=== PATIENT | male | born 2000 | race Caucasian/White ===

== ENCOUNTER 2019-09-21 20:10 | Emergency (ER) | payer MEDICAID ==
[2019-09-21] MEDS ORDERED: DIPH/PERTUSS(ACELL)/TETANUS VAC/PF 0.5 ML SYR (>=10YO) IM ONE (20:20)
--- NOTE | 2019-09-21 20:23 | ER Document Report ---
ED Medical Screen (RME) - General Chief Complaint: Laceration Stated Complaint: LEFT HAND LACERATION Time Seen by Provider: 09/21/19 20:20 Primary Care Provider: DEB CEPSEDES MD [Primary Care Provider] - Follow up as needed TRAVEL OUTSIDE OF THE [place] IN LAST 30 DAYS: No - HPI Notes: 09/21/19 20:21 Patient is a 18-year-old male with unknown last tetanus who presents complain ing of laceration to his left proximal anterior index finger by a clean knife when he was trying to open up a toy for his nephew prior to arrival. Patient states that he cannot flex his finger. I have treated and performed a rapid initial assessment of this patient. A comprehensive ED assessment and evaluation of the patient, analysis of test results and completion of medical decision making process will be conducted by additional ED providers. PHYSICAL EXAMINATION: GENERAL: Well-appearing, well-nourished and in no acute distress. A&Ox4. Answers questions appropriately. Left index finger: there is a somewhat deep, approx 2cm, laceration anterior prox finger. Pt cannot flex at the PIP/DIP joint suspect tendon laceration. - Related Data Allergies/Adverse Reactions: No Known Allergies Allergy (Verified 09/21/19 20:18) Past Medical History Pulmonary Medical History: Reports: Hx Asthma Psychiatric Medical History: Reports: Hx Attention Deficit Hyperactivity Disorder - Immunizations Immunizations up to date: Yes Hx Diphtheria, Pertussis, Tetanus Vaccination: Yes Physical Exam - Vital signs Vitals: Temp Pulse Resp BP Pulse Ox 98.3 F 107 H 20 146/86 H 99 09/21/19 20:16 09/21/19 20:16 09/21/19 20:16 09/21/19 20:16 09/21/19 20:16 Course - Vital Signs Vital signs: Temp Pulse Resp BP Pulse Ox 98.3 F 107 H 20 146/86 H 99 09/21/19 20:16 09/21/19 20:16 09/21/19 20:16 09/21/19 20:16 09/21/19 20:16 Doctor's Discharge - Discharge Referrals: DEB CESPEDES MD [Primary Care Provider] - Follow up as needed
--- NOTE | 2019-09-21 21:01 | RADIOLOGY REPORT (SQ) ---
EXAM DESCRIPTION: XR HAND 3 OR MORE VIEWS COMPLETED DATE/TME: 09/21/2019 20:20 CLINICAL HISTORY: 18 years, Male, left prox index finger lac, suspect tendon involv COMPARISON: None. NUMBER OF VIEWS: 3 TECHNIQUE: LIMITATIONS: None. FINDINGS: No acute displaced fracture is identified. Alignment is anatomic. Soft tissue swelling. Apparent soft tissue injury to the second digit. Fingers are shown to be overlapping on the lateral view. If there a history of a hyperextension injury to any digit, dedicated lateral imaging of the digit in question is advised. IMPRESSION: No acute bony injury is identified copyright 2010 [employer]- All Rights Reserved
--- NOTE | 2019-09-22 00:12 | ER Document Report ---
ED Wound - General Chief Complaint: Laceration Stated Complaint: LEFT HAND LACERATION Time Seen by Provider: 09/21/19 20:20 Primary Care Provider: DEB CESPEDES MD [NO LOCAL MD] - Follow up as needed Mode of Arrival: Ambulatory Information source: Patient Notes: 18-year-old male states he was using a knife to cut into a box around a toy and the knife slipped and it cut across his palm side of his left index finger with a 50% circumferential laceration. Gaping with soft tissue fatty tissue present in the wound site no arterial bleed venous oozing. Capillary refill normal distal tip pink with super sensation hyper sensitive to pain. TRAVEL OUTSIDE OF THE [place] IN LAST 30 DAYS: No - HPI Patient complains to provider of: Laceration Occurred: Other - A few hours prior to arrival Onset/Duration: Sudden Severity: Moderate Pain Level: 5 Context: Injury Skin Color: [place] Capillary refill: < 3 seconds Sensations intact: Yes Associated Symptoms: Bleeding, Other - Loss of flexion in left index finger - Related Data Allergies/Adverse Reactions: No Known Allergies Allergy (Verified 09/21/19 20:18) Past Medical History - Social History Smoking Status: Current Every Day Smoker Frequency of alcohol use: None Drug Abuse: Marijuana Lives with: Family Family History: Reviewed & Not Pertinent, Other - Kidney stones Patient has suicidal ideation: No Patient has homicidal ideation: No Pulmonary Medical History: Reports: Hx Asthma Psychiatric Medical History: Reports: Hx Attention Deficit Hyperactivity Disorder - Immunizations Immunizations up to date: Yes Hx Diphtheria, Pertussis, Tetanus Vaccination: Yes Review of Systems - Review of Systems Constitutional: No symptoms reported EENT: No symptoms reported Cardiovascular: No symptoms reported Respiratory: No symptoms reported Gastrointestinal: No symptoms reported Genitourinary: No symptoms reported Male Genitourinary: No symptoms reported Musculoskeletal: No symptoms reported Skin: See HPI Hematologic/Lymphatic: No symptoms reported Neurological/Psychological: No symptoms reported - Loss of flexion in the left index finger Physical Exam - Vital signs Vitals: Temp Pulse Resp BP Pulse Ox 98.3 F 107 H 20 146/86 H 99 09/21/19 20:16 09/21/19 20:16 09/21/19 20:16 09/21/19 20:16 09/21/19 20:16 Interpretation: Normal - General General appearance: Appears well, Alert - HEENT Head: Normocephalic, Atraumatic Eyes: Normal Pupils: PERRL - Respiratory Respiratory status: No respiratory distress Chest status: Nontender Breath sounds: Normal Chest palpation: Normal - Cardiovascular Rhythm: Regular Heart sounds: Normal auscultation Murmur: No - Abdominal Inspection: Normal Distension: No distension Bowel sounds: Normal Tenderness: Nontender Organomegaly: No organomegaly - Back Back: Normal, Nontender - Extremities General upper extremity: Normal inspection, Nontender, Normal color, Normal ROM, Normal temperature General lower extremity: Normal inspection, Nontender, Normal color, Normal ROM, Normal temperature, Normal weight bearing. No: Marli's sign Hand: Laceration, Tendon deficit, Other - Left index finger with a 650% circumferential laceration over the proximal finger ventral side below the MCP joint. Oozing venous blood no arterial pumping at this time. Gaping wound with soft tissue fatty layer extruding from wound site. Distal sensation intact capillary refill within normal limits of finger - Neurological Neuro grossly intact: Yes Cognition: Normal Orientation: AAOx4 [place] Coma Scale Eye Opening: Spontaneous [place] Coma Scale Verbal: Oriented [place] Coma Scale Motor: Obeys Commands Jab[place] Coma Scale Total: 15 Speech: Normal Motor strength normal: LUE, RUE, LLE, RLE Sensory: Normal - Psychological Associated symptoms: Normal affect, Normal mood - Skin Skin Temperature: Warm Skin Moisture: Dry Skin Color: Normal Course - Re-evaluation Re-evalutation: 09/22/19 03:32 Post repair procedure distal neuro motor vascular intact. Patient is placed in a splint good adhesion of wound site with no active bleeding at this time. And again distal neuromotor vascular intact except for patient has loss of flexion of the left index finger. Prior to the procedure case was discussed with Dr. Davalos the on-call orthopedic doctor the plan is for patient to follow-up in the office for further evaluation and treatment of his wound incision and his loss of flexion. - Vital Signs Vital signs: Temp Pulse Resp BP Pulse Ox 98.3 F 107 H 20 146/86 H 99 09/21/19 20:16 09/21/19 20:16 09/21/19 20:16 09/21/19 20:16 09/21/19 20:16 Procedures - Laceration/Wound Repair Left Proximal Finger 2nd digit Wound length (cm): 5 Wound's Depth, Shape: Linear, Other - Gaping wound with soft tissue fatty tissue layer exposed. Laceration pre-procedure: Chloraprep applied, Sterile drapes applied Anesthetic type: 2% Lidocaine Volume Anesthetic (mLs): 10 Wound explored: No foreign body removed Irrigated w/ Saline (mLs): 30 Wound Debrided: Minimal - Revised wound with minimal debridement. Wound Repaired With: Sutures Suture Size/Type: Vicryl, 4:0 Number of Sutures: 9 Layer Closure?: No Post-procedure wound care: Sterile dressing applied, Splint applied Post-procedure NV exam normal: Yes Complications: No Discharge - Discharge Clinical Impression: Finger laceration involving tendon Condition: Stable Disposition: HOME, SELF-CARE Admitting Provider: Susannah Instructions: Oral Narcotic Medication ([facility]), Laceration Care ([facility]), Prophylactic Antibiotic ([facility]) Additional Instructions: Tendon Laceration Referral Your cut damaged an underlying tendon. The tendon needs surgical repair. We are referring you to a specialist for this treatment. You should know that even after repair, the tendon won't be strong enough for normal use for several weeks. You'll need to work at restoring mobility once the tendon has healed. We have closed the skin over the injured tendon. A splint will be used to immobilize the tendon. The splint should NOT be removed without the doctor's permission. You should call or return if there is redness, swelling, increasing pain, red streaks, tender lumps in the armpit or groin, or fever. Laceration Care Your laceration has been sutured to keep the skin edges aligned during healing. The time of suture removal depends on the nature and location of your cut. Please follow the care instructions the doctor has outlined for you and return for further care, according to the schedule you've been given. Keep the wound and dressing clean. Unless you were told otherwise, you may shower daily, blotting the wound dry with a clean, unused towel. At other times, If the dressing gets wet or blood soaked, remove it and blot the wound dry, then reapply a new dressing. Unless you were instructed otherwise, dressings should be changed at least daily. If any signs of infection occur (swelling, redness, increasing tenderness, red streaks, tender lumps in the armpit or groin above the laceration, or fever), see the doctor immediately. Patient instructed to follow-up with Dr. Davalos, orthopedic doctor in the community Prescriptions: Hydrocodone/Acetaminophen [Hydrocodone-Acetamin 5-300 mg] 1 each PO QID PRN #15 tablet PRN Reason: Cephalexin Monohydrate [Keflex 500 mg Capsule] 500 mg PO Q6H 5 Days capsule Forms: Smoking Cessation Education Referrals: DEB CESPEDES MD [NO LOCAL MD] - 09/22/19 3:41 am (Follow up with orthopedic office, Dr Davalos)
[2019-09-22] MEDS ORDERED: MORPHINE SULFATE 10 MG/ML INJ IV PRN (01:26)
[2019-09-22] MEDS ORDERED: ONDANSETRON HCL INJ/PF 4 MG/2 ML SDV IV ONE (01:27)
[2019-09-22] MEDS ORDERED: LIDOCAINE 2% INJ (20 MG/ML) 20 ML MDV INJ ONE (01:31)
[2019-09-22] MEDS ORDERED: LIDOCAINE 2% INJ (20 MG/ML) 20 ML MDV INFIL ONE (01:31)
[2019-09-22] MEDS ORDERED: OXYCODONE-ACETAMINOPHEN 5-325 MG TABLET PO ONE (01:37)
[2019-09-22] MEDS ORDERED: CEPHALEXIN 500 MG CAPSULE PO ONE (01:39)
[2019-09-22 04:24] VITALS: BP 132/86
== END 2019-09-22 04:25 | disposition home or self-care (01) ==
LOC: ER 20:10 → UNDOADMIN 09-22 04:10 → EH 09-22 04:10 → ER 09-22 04:25
DX: S61.211A Laceration without foreign body of left index finger without damage to nail, initial encounter (principal); W26.0XXA Contact with knife, initial encounter; Y93.89 Activity, other specified; J45.909 Unspecified asthma, uncomplicated; F12.10 Cannabis abuse, uncomplicated; F17.200 Nicotine dependence, unspecified, uncomplicated; Z23 Encounter for immunization
CPT/HCPCS: 12002 ×2; 99283; 90471; 73130; 90715; J3490